=== PATIENT | female | born 1975 | race Caucasian/White ===

== ENCOUNTER 2019-12-25 23:59 | Emergency (ER) | payer BC, OTHER ==
[~2019-12-25] VITALS: Ht 165.1 cm; Wt 86.2 kg
[~2019-12-25 23:59] MED LIST: TRI-SPRINTEC1 EACH PO
--- NOTE | 2019-12-26 00:51 | Diagnostic Imaging Report ---
Examination: CT head without contrast Clinical Indication: Facial numbness; paralysis. Technique: Transaxial noncontrast images from the skull base through the vertex were obtained. Sagittal and coronal reformatted images were done. Dose modulation, iterative reconstruction, and/or weight based adjustment of the mA/kV was utilized to reduce the radiation dose to as low as reasonably achievable. Comparison: None. Findings: Scalp: No abnormalities. Bones: Intact. No fractures. No blastic or lytic lesions. Brain sulci: Appropriate for patient's age. Ventricles: Normal in size and configuration. No hydrocephalus. Extra-axial space: No abnormalities. Parenchyma: No abnormal densities. No masses, hemorrhage, or acute or chronic cortical based vascular insults. Suprasellar region: No abnormalities. Craniocervical junction: The foramen magnum is patent. No Chiari one malformation. Impression: No intracranial abnormality. Signed by: Dr. Marlen Delgado M.D. on 12/26/2019 12:48 AM
== END 2019-12-26 01:04 | disposition home or self-care (01) ==
LOC: ER 23:59
DX: G51.0 Bell's palsy (principal); I10 Essential (primary) hypertension
CPT/HCPCS: 70450; 99283